=== PATIENT | male | born 1950 | race Caucasian/White ===

== ENCOUNTER 2017-10-19 11:55 | Emergency (ER) | END 2017-10-19 15:16 | disposition home or self-care (01) ==

== ENCOUNTER 2017-11-01 17:19 | Emergency (ER) | END 2017-11-01 19:00 | disposition home or self-care (01) ==

== ENCOUNTER 2017-11-15 12:52 | Emergency (ER) | END 2017-11-15 15:29 | disposition home or self-care (01) ==

== ENCOUNTER 2018-07-04 16:23 | Emergency (ER) | payer MEDICARE, OTHER ==
[~2018-07-04] VITALS: Ht 180.3 cm; Wt 79.0 kg
[~2018-07-04 16:23] MED LIST: ACET500C5 PO; IBUP-1542 PO; NAPR-688 PO
[2018-07-04 16:26] VITALS: BP 149/76; PULSE 65; RESP 20; Ht 180.3 cm; Wt 79.0 kg
--- NOTE | 2018-07-04 16:56 | ERD ---
ER Documentation Chief Complaint Chief Complaint c/o right hip pain, had surgery on area in the past HPI 67-year-old male with history of chronic right hip pain presents for 1 pill of Percocet. Patient states that he has has chronic pain and is trying to get into pain management. States that 10 mg of Percocet helps with the pain, and states that the last time he used Percocet was 2 weeks ago. Denies being on any medications currently for pain. Patient states that he does not want a prescription rather just 1 pill right now for help with the pain. Describes the pain is intermittent and currently 10 out of 10. Denies fevers, chills, numbness, tingling, weakness. ROS All systems reviewed and are negative except as per history of present illness. Medications Home Meds Active Scripts Ibuprofen* (Motrin*) 600 Mg Tab, 600 MG PO Q8, #30 TAB Prov:KIMI CEBALLOS MD 11/15/17 Naproxen* (Naproxen*) 500 Mg Tablet, 500 MG PO BID PRN for PAIN, #14 TAB Prov:MARY SOTELO DO 11/01/17 Acetaminophen* (Tylophen*) 500 Mg Capsule, 1 CAP PO Q6H PRN for PAIN AND OR ELEVATED TEMP, #20 CAP Prov:ANGELINA STARR PA-C 10/19/17 Allergies Allergies: Coded Allergies: No Known Allergy (Unverified , 11/15/17) PMhx/Soc History of Surgery: Yes (right hip) Anesthesia Reaction: No Hx Neurological Disorder: No Hx Respiratory Disorders: No Hx Cardiac Disorders: No Hx Psychiatric Problems: No Hx Miscellaneous Medical Probl: Yes Hx Alcohol Use: No Hx Substance Use: No Hx Tobacco Use: Yes (cig a pack day) Smoking Status: Former smoker FmHx Family History: No diabetes, No coronary disease, No other Physical Exam Vitals Vital Signs Date Temp Pulse Resp B/P (MAP) Pulse Ox O2 O2 Flow FiO2 Time Delivery Rate 07/04/18 98.6 65 20 149/76 98 16:26 (100) Physical Exam Const: No acute distress Head: Atraumatic Eyes: Normal Conjunctiva ENT: Normal External Ears, Nose and Mouth. Neck: Full range of motion. No meningismus. Resp: Clear to auscultation bilaterally Cardio: Regular rate and rhythm, no murmurs Abd: Soft, non tender, non distended. Normal bowel sounds Skin: No petechiae or rashes Back: No midline or flank tenderness Ext: No cyanosis, or edema Neur: Awake and alert Psych: Normal Mood and Affect Results 24 hrs Current Medications Medications Dose Sig/Edwardo Start Time Status Last (Trade) Ordered Route PRN Stop Time Admin Dose Reason Admin Oxycodone/ 1 tab ONCE ONCE 07/04/18 Acetaminophen PO 17:00 07/04/18 (Endocet 17:01 ()) Procedures/MDM I ran a [place] and saw the patient has been going to multiple providers for pain medications. While I believe that the patient does have hip pain, I told him that he needs to get into pain management as this would be the most effective way to manage his pain. Patient was given 1 Percocet in the ER. I have low suspicion for neurovascular compromise, compartment syndrome, fracture, osteomyelitis, septic joint, or other emergent condition. Patient discharged with strict ER precautions. Patient advised to follow up with PMD. All questions answered at discharge. Departure Diagnosis: Primary Impression: Hip pain Laterality: right Qualified Codes: M25.551 - Pain in right hip Condition: Stable Patient Instructions: Pain Management Referrals: [facility] YOU HAVE RECEIVED A MEDICAL SCREENING EXAM AND THE RESULTS INDICATE THAT YOU DO NOT HAVE A CONDITION THAT REQUIRES URGENT TREATMENT IN THE EMERGENCY DEPARTMENT. FURTHER EVALUATION AND TREATMENT OF YOUR CONDITION CAN WAIT UNTIL YOU ARE SEEN IN YOUR DOCTORS OFFICE WITHIN THE NEXT 1-2 DAYS. IT IS YOUR RESPONSIBILITY TO MAKE AN APPOINTMENT FOR FOLOW-UP CARE. IF YOU HAVE A PRIMARY DOCTOR --you should call your primary doctor and schedule an appointment IF YOU DO NOT HAVE A PRIMARY DOCTOR YOU CAN CALL OUR PHYSICIAN REFERRAL HOTLINE AT IF YOU CAN NOT AFFORD TO SEE A PHYSICIAN YOU CAN CHOSE FROM THE FOLLOWING [facility] [address] [facility] [address] [facility] [address] [facility] [address] [facility] [address] [facility]. [address] Additional Instructions: FOLLOW UP WITH YOUR PRIMARY CARE PHYSICIAN TOMORROW.Return to this facility if you are not improving as expected. VINOD PINEDA Jul 04, 2018 16:56
[2018-07-04] MEDS ORDERED: OXYCODONE/ACETAMINOPHEN (10/325) TAB PO ONE (17:00)
== END 2018-07-04 17:39 | disposition home or self-care (01) ==
LOC: FTE 16:23
DX: M25.551 Pain in right hip (principal); Z87.891 Personal history of nicotine dependence
CPT/HCPCS: 99283

== ENCOUNTER 2018-07-06 14:34 | Emergency (ER) | payer MEDICARE ==
[~2018-07-06] VITALS: Ht 177.8 cm; Wt 79.8 kg
[2018-07-06 15:06] VITALS: BP 116/62; PULSE 62; RESP 18; Ht 177.8 cm; Wt 79.8 kg
[2018-07-06] MEDS ORDERED: OXYCODONE/ACETAMINOPHEN (10/325) TAB PO ONE (17:00)
--- NOTE | 2018-07-06 17:51 | ERD ---
ER Documentation Chief Complaint Chief Complaint c/o right hip pain HPI This is a 67-year-old male with history of chronic right hip pain presents to the ED complaining exacerbation of his pain. Patient reports a throbbing 6 out of 10 pain to his right hip. He states he initially injured and broke his right hip 3 months ago and again reinjured it 2 weeks ago after falling in [place]. He states he has an appointment to see his orthopedic surgeon tomorrow and is requesting only 1 pill of Percocet to help with the pain. He uses a cane for ambulation. He denies any numbness, tingling, focal weakness. He states he has an appointment at the [facility] for pain management on July 21, 2018. Patient was seen here 2 days ago for same. ROS All systems reviewed and are negative except as per history of present illness. Medications Home Meds Active Scripts Ibuprofen* (Motrin*) 600 Mg Tab, 600 MG PO Q8, #30 TAB Prov:KIMI CEBALLOS MD 11/15/17 Naproxen* (Naproxen*) 500 Mg Tablet, 500 MG PO BID PRN for PAIN, #14 TAB Prov:MARY SOTELO DO 11/01/17 Acetaminophen* (Tylophen*) 500 Mg Capsule, 1 CAP PO Q6H PRN for PAIN AND OR ELEVATED TEMP, #20 CAP Prov:ANGELINA STARR PA-C 10/19/17 Allergies Allergies: Coded Allergies: Penicillins (Verified Allergy, Mild, 07/06/18) PMhx/Soc History of Surgery: Yes (right hip) Anesthesia Reaction: No Hx Neurological Disorder: No Hx Respiratory Disorders: No Hx Cardiac Disorders: No Hx Psychiatric Problems: No Hx Miscellaneous Medical Probl: Yes Hx Alcohol Use: No Hx Substance Use: No Hx Tobacco Use: Yes (cig a pack day) Smoking Status: Current every day smoker Physical Exam Vitals Vital Signs Date Temp Pulse Resp B/P (MAP) Pulse Ox O2 O2 Flow FiO2 Time Delivery Rate 07/06/18 97.0 62 18 116/62 98 15:06 (80) Physical Exam Const: No acute distress. + Limping, ambulating with a cane Head: Atraumatic Eyes: Normal Conjunctiva ENT: Normal External Ears, Nose and Mouth. Neck: Full range of motion. No meningismus. Skin: No petechiae or rashes Back: No midline or flank tenderness Ext: No cyanosis, or edema Neur: Awake and alert Psych: Normal Mood and Affect Results 24 hrs Current Medications Medications Dose Sig/Edwardo Start Time Status Last (Trade) Ordered Route PRN Stop Time Admin Dose Reason Admin Oxycodone/ 1 tab ONCE ONCE 07/06/18 DC 07/06/18 Acetaminophen PO 17:00 07/06/18 17:12 (Endocet 17:01 ()) Procedures/MDM ED COURSE: The patient was given Percocet The medication was well tolerated and the patient had market improvement in symptoms. The patient remained stable throughout ED course. MEDICAL DECISION MAKING: This is a 67-year-old male with history of chronic right hip pain status post fracture several months ago presents to the ED for exacerbation of his chronic pain. Patient has no acute findings on physical exam. He is able to remain a mbulatory with a cane. He is requesting one Percocet here. Records reviewed show that he was seen 2 days ago for same. He was given 1 Percocet and discharged home. I reviewed his information on the [facility] which shows that patient has been to multiple ED visits for narcotic pain meds. He was last given a short rx 3 weeks ago. I have decided to give him only 1 Percocet here. I told him that he must follow-up with [facility] whom he has an appointment with on July 21, 2018. He was not given a prescription for any narcotic pain medications here. PRESCRIPTIONS: None SPECIALIST FOLLOW UP RECOMMENDED: regional facilities specialist. Patient has been advised to follow up with primary care in 1-2 days. Smoking Cessation Therapy: Pt. was lectured for greater than 3 minutes on the health risks of continued smoking and the benefits of cessation. Departure Diagnosis: Primary Impression: Hip pain Laterality: right Qualified Codes: M25.551 - Pain in right hip Condition: Stable Patient Instructions: Hip Precautions Referrals: DOCTOR,NOT ON STAFF (PCP) Additional Instructions: Please follow-up with the [facility] as scheduled. you can take [id number] Motrin or Tylenol for any pain. Return here for any new or worsening symptoms. RALPH CULLEN PA-C Jul 06, 2018 17:51
== END 2018-07-06 17:57 | disposition home or self-care (01) ==
LOC: FTE 14:34
DX: M25.551 Pain in right hip (principal); F17.210 Nicotine dependence, cigarettes, uncomplicated
CPT/HCPCS: 99283

== ENCOUNTER 2018-07-09 11:52 | Emergency (ER) | payer MEDICARE ==
[~2018-07-09] VITALS: Ht 180.3 cm; Wt 80.0 kg
[2018-07-09 12:01] VITALS: BP 121/60; PULSE 64; RESP 18; Ht 180.3 cm; Wt 80.0 kg
--- NOTE | 2018-07-09 13:10 | ERD ---
ER Documentation Chief Complaint Chief Complaint pt bib self needs "one pill of pain meds " awaiting script Right hip pain HPI 67-year-old male presents with a history of right hip fracture. He is awaiting his prescription via mail. He is asking for one pain pill today. Denies any recent injuries, fevers, chest pain, shortness of breath, additional symptoms. She requesting one Percocet to hold him over until his prescription arrives ho pefully within the next 1-2 days. He recently broke his hip in the [facility] and his family is sending his medication from there. ROS All systems reviewed and are negative except as per history of present illness. Medications Home Meds Active Scripts Ibuprofen* (Motrin*) 600 Mg Tab, 600 MG PO Q8, #30 TAB Prov:KIMI CEBALLOS MD 11/15/17 Naproxen* (Naproxen*) 500 Mg Tablet, 500 MG PO BID PRN for PAIN, #14 TAB Prov:MARY SOTELO DO 11/01/17 Acetaminophen* (Tylophen*) 500 Mg Capsule, 1 CAP PO Q6H PRN for PAIN AND OR ELEVATED TEMP, #20 CAP Prov:ANGELIAN STARR PA-C 10/19/17 Allergies Allergies: Coded Allergies: Penicillins (Verified Allergy, Mild, 07/06/18) PMhx/Soc History of Surgery: Yes (right hip) Anesthesia Reaction: No Hx Neurological Disorder: No Hx Respiratory Disorders: No Hx Cardiac Disorders: No Hx Psychiatric Problems: No Hx Miscellaneous Medical Probl: Yes Hx Alcohol Use: No Hx Substance Use: No Hx Tobacco Use: Yes (cig a pack day) FmHx Family History: No diabetes, No coronary disease, No other Physical Exam Vitals Vital Signs Date Temp Pulse Resp B/P (MAP) Pulse Ox O2 O2 Flow FiO2 Time Delivery Rate 07/09/18 98.3 64 18 121/60 99 12:01 (80) Physical Exam Const: No acute distress Head: Atraumatic Eyes: Normal Conjunctiva ENT: Normal External Ears, Nose and Mouth. Neck: Full range of motion. No meningismus. Resp: Clear to auscultation bilaterally Cardio: Regular rate and rhythm, no murmurs Abd: Soft, non tender, non distended. Normal bowel sounds Skin: No petechiae or rashes Back: No midline or flank tenderness Ext: No cyanosis, or edema. Ambulatory with a cane. No deficits. Neur: Awake and alert Psych: Normal Mood and Affect Procedures/MDM Patient presents with postoperative pain for right hip fracture. He was given Percocet 10 mg by mouth by request. He is not requesting a prescription. Patient apparently has had management pending with receipt of his medications shortly. He denies recent trauma and is otherwise well-appearing and ambulatory. The patient was stable with no new complaints during the ER course. Clinically, there is no current evidence to suggest meningitis, sepsis, acute abdomen, pneumonia, stroke, acute coronary syndrome, pulmonary embolism, aortic dissection or any other emergent condition appearing to require further evaluation or hospitalization. Patient counseled regarding my diagnostic impression and care plan. Prior to discharge all questions answered. Pt agrees with treatment plan and understands strict return precautions. Pt is instructed to follow up with primary care provider within 24-48 hours. Precautionary instructions provided including instructions to return to the ER if not improving or for any worsening or changing symptoms or concerns. Departure Diagnosis: Primary Impression: Encounter for medication refill Additional Impression: Hip pain Laterality: right Qualified Codes: M25.551 - Pain in right hip Condition: Stable RONNIE RIVAS MD Jul 09, 2018 13:10
[2018-07-09] MEDS ORDERED: OXYCODONE/ACETAMINOPHEN (10/325) TAB PO ONE (13:30)
== END 2018-07-09 14:25 | disposition home or self-care (01) ==
LOC: FTE 11:52
DX: M25.551 Pain in right hip (principal); Z76.0 Encounter for issue of repeat prescription; Z87.891 Personal history of nicotine dependence
CPT/HCPCS: 99283

== ENCOUNTER 2018-07-12 13:33 | Emergency (ER) | payer MEDICARE ==
[~2018-07-12] VITALS: Wt 72.0 kg
[2018-07-12 13:37] VITALS: BP 134/64; PULSE 62; RESP 20
--- NOTE | 2018-07-12 13:44 | EN ---
Date/Time of Note Date/Time of Note DATE: 07/12/18 TIME: 13:43 ER Progress Note Patient seen in E.. MSE performed. Patient requesting 1 pain pill dispensed until his prescription arrives within the next 1- 2 day in mail. RONNIE RIVAS MD Jul 12, 2018 13:44
[2018-07-12] MEDS ORDERED: OXYCODONE/ACETAMINOPHEN (5/325) TAB PO ONE (15:00)
--- NOTE | 2018-07-12 15:53 | ERD ---
ER Documentation Chief Complaint Chief Complaint NEEDS PAIN MEDS REFILLED . PT IS FROM [place] TOWN , R HIP PAIN HPI 67-year-old male presenting with hip pain. Patient has a long extensive surgical history of hip replacements. He states he is out of town and is waiting for his pain management doctor to send medications in the mail. Patient states he is requesting a pain pill but does not need a prescription for pain. Patient denies any recent falls. Denies any numbness or tingling. Denies other medical problems. NKDA. Surgical history hip replaced. Social history denies ROS All systems reviewed and are negative except as per history of present illness. Medications Home Meds Active Scripts Ibuprofen* (Motrin*) 600 Mg Tab, 600 MG PO Q8, #30 TAB Prov:KIMI CEBALLOS MD 11/15/17 Naproxen* (Naproxen*) 500 Mg Tablet, 500 MG PO BID PRN for PAIN, #14 TAB Prov:MARY SOTELO DO 11/01/17 Acetaminophen* (Tylophen*) 500 Mg Capsule, 1 CAP PO Q6H PRN for PAIN AND OR ELEV ATED TEMP, #20 CAP Prov:ANGELINA STARR PA-C 10/19/17 Allergies Allergies: Coded Allergies: Penicillins (Verified Allergy, Mild, 07/06/18) PMhx/Soc History of Surgery: Yes (right hip) Anesthesia Reaction: No Hx Neurological Disorder: No Hx Respiratory Disorders: No Hx Cardiac Disorders: No Hx Psychiatric Problems: No Hx Miscellaneous Medical Probl: Yes Hx Alcohol Use: No Hx Substance Use: No Hx Tobacco Use: Yes (cig a pack day) Smoking Status: Never smoker FmHx Family History: No diabetes, No coronary disease, No other Physical Exam Vitals Vital Signs Date Temp Pulse Resp B/P (MAP) Pulse Ox O2 O2 Flow FiO2 Time Delivery Rate 07/12/18 98.7 62 20 134/64 98 13:37 (87) Physical Exam GENERAL: The patient is well-appearing, well-nourished, in no acute distress CHEST: Clear to auscultation bilaterally. There are no rales, wheezes or rhonchi. HEART: Regular rate and rhythm. No murmurs, clicks, rubs or gallops. EXTREMITIES: Limited range of motion of the hip secondary to pain. Vascular intact. No erythema or induration. NEUROLOGIC: Alert and oriented. Cranial nerves II through XII intact. Motor strength in all 4 extremities with 5 out of 5 strength. Sensation grossly intact. Normal speech and gait. Babinski negative. DTR 2+ throughout. SKIN: There is no apparent rash or petechiae. The skin is warm and dry. Results 24 hrs Current Medications Medications Dose Sig/Edwardo Start Time Status Last (Trade) Ordered Route PRN Stop Time Admin Dose Reason Admin Oxycodone/ 1 tab ONCE ONCE 07/12/18 DC 07/12/18 Acetaminophen PO 15:00 14:45 (Percocet 07/12/18 15:01 (5/ 325)) Procedures/MDM ER course: Percocet 5/325 given ED. MDM: 67-year-old male presenting with hip pain. Patient is stating he has pain medication and transit and is requesting a pill today. I have reviewed patient's cures report and is extensive. I told patient I will not be discharged with a prescription. I have concern for drug-seeking behavior in thi s patient. Patient is given pain pill in the ER and then discharged. Patient is not driving. All questions answered at discharge Departure Diagnosis: Primary Impression: Hip pain Additional Impression: Encounter for medication refill Condition: Stable Patient Instructions: Hip Precautions Referrals: [facility] YOU HAVE RECEIVED A MEDICAL SCREENING EXAM AND THE RESULTS INDICATE THAT YOU DO NOT HAVE A CONDITION THAT REQUIRES URGENT TREATMENT IN THE EMERGENCY DEPARTMENT. FURTHER EVALUATION AND TREATMENT OF YOUR CONDITION CAN WAIT UNTIL YOU ARE SEEN IN YOUR DOCTORS OFFICE WITHIN THE NEXT 1-2 DAYS. IT IS YOUR RESPONSIBILITY TO MAKE AN APPOINTMENT FOR FOLOW-UP CARE. IF YOU HAVE A PRIMARY DOCTOR --you should call your primary doctor and schedule an appointment IF YOU DO NOT HAVE A PRIMARY DOCTOR YOU CAN CALL OUR PHYSICIAN REFERRAL HOTLINE AT IF YOU CAN NOT AFFORD TO SEE A PHYSICIAN YOU CAN CHOSE FROM THE FOLLOWING [facility] [address] [facility] [address] [facility] [address] [facility] [address] [facility] [address] [facility] [facility] [address] Additional Instructions: FOLLOW UP WITH YOUR PRIMARY CARE PHYSICIAN TOMORROW.Return to this facility if you are not improving as expected. DARIEN GARCIA PA-C Jul 12, 2018 15:53
== END 2018-07-12 15:25 | disposition left against medical advice (07) ==
LOC: FTE 13:33
DX: M25.551 Pain in right hip (principal); F17.210 Nicotine dependence, cigarettes, uncomplicated; Z76.0 Encounter for issue of repeat prescription; Z96.649 Presence of unspecified artificial hip joint
CPT/HCPCS: 99283

== ENCOUNTER 2018-07-15 11:16 | Emergency (ER) | payer MEDICARE ==
[~2018-07-15] VITALS: Ht 182.9 cm; Wt 80.0 kg
[2018-07-15 12:01] VITALS: BP 141/61; PULSE 62; RESP 18; Ht 182.9 cm; Wt 80.0 kg
--- NOTE | 2018-07-15 13:20 | ERD ---
ER Documentation Chief Complaint Chief Complaint C/O RIGHT HIP PAIN; SURGERY 3 MONTHS AGO; RUN OUT OF PAIN MEDS HPI Patient is a 67-year-old male who presents with right-sided hip pain. He says that he had surgery 3 months ago and is run out of his pain medications. He is well-known to myself and to our staff and uses 3 different names and has complained for years of having right-sided hip pain. His story has been similar in the past as well. Upon review of the emergency department information exchange system the patient has more than 50 visits to more than 10 different emergency departments over the past 12 months. He requests narcotic pain medicines. ROS All systems reviewed and are negative except as per history of present illness. Medications Home Meds Active Scripts Ibuprofen* (Motrin*) 600 Mg Tab, 600 MG PO Q8, #30 TAB Prov:KIMI CEBALLOS MD 11/15/17 Naproxen* (Naproxen*) 500 Mg Tablet, 500 MG PO BID PRN for PAIN, #14 TAB Prov:MARY SOTELO DO 11/01/17 Acetaminophen* (Tylophen*) 500 Mg Capsule, 1 CAP PO Q6H PRN for PAIN AND OR ELEVATED TEMP, #20 CAP Prov:ANGELINA STARR PA-C 10/19/17 Allergies Allergies: Coded Allergies: Penicillins (Verified Allergy, Mild, 07/06/18) PMhx/Soc History of Surgery: Yes (right hip) Anesthesia Reaction: No Hx Neurological Disorder: No Hx Respiratory Disorders: No Hx Cardiac Disorders: No Hx Psychiatric Problems: No Hx Miscellaneous Medical Probl: Yes Hx Alcohol Use: No Hx Substance Use: No Hx Tobacco Use: Yes (cig a pack day) FmHx Family History: No diabetes Physical Exam Vitals Vital Signs Date Temp Pulse Resp B/P (MAP) Pulse Ox O2 O2 Flow FiO2 Time Delivery Rate 07/15/18 97.3 62 18 141/61 100 12:01 (87) Physical Exam Const: No acute distress Neur: Awake and alert, patient visualized ambulating in the emergency department Procedures/MDM Patient is a 67-year-old male who presents with chronic right hip pain. I believe he is exhibiting drug-seeking behavior. He was witnessed ambulating in the emergency department. I would not give him narcotic medicines or prescriptions for narcotics in the future. The patient eloped prior to receiving information on discharge paperwork. Departure Diagnosis: Primary Impression: Chronic pain Chronic pain type: chronic pain syndrome Qualified Codes: G89.4 - Chronic pain syndrome Additional Impression: Hip pain Laterality: right Qualified Codes: M25.551 - Pain in right hip Condition: Fair Patient Instructions: Chronic Pain Referrals: YUNIEL MESA MD Additional Instructions: SPECIALIST: YOU HAVE A MEDICAL CONDITION WHICH REQUIRES YOU TO SEE A SPECIALIST WITHIN THE NEXT 1-2 DAYS. PLEASE FOLLOW UP WITH YOUR PRIMARY PHYSICIAN FOR REFFERAL.IF YOU DO NOT HAVE A PRIMARY CARE PHYSICIAN AND/OR YOU CAN NOT AFFORD TO SEE A PHYSICIAN THE FOLLOWING RESOURCES HAVE BEEN SUPPLIED TO YOU. IT IS YOUR RESPONSIBILITY TO BE SEEN BY THE SPECIALIST STEPHAN YAO MD Jul 15, 2018 13:19
== END 2018-07-15 14:23 | disposition left against medical advice (07) ==
LOC: E/R 11:16
DX: M25.551 Pain in right hip (principal); G89.4 Chronic pain syndrome; Z87.891 Personal history of nicotine dependence
CPT/HCPCS: 99282

== ENCOUNTER 2018-08-22 17:56 | Emergency (ER) | payer MEDICARE ==
[~2018-08-22] VITALS: Ht 180.3 cm; Wt 78.7 kg
[2018-08-22 17:59] VITALS: BP 136/70; PULSE 66; RESP 18; Ht 180.3 cm; Wt 78.7 kg
[2018-08-22] MEDS ORDERED: NALO4SPR NS (18:05)
--- NOTE | 2018-08-22 18:09 | ERD ---
ER Documentation Chief Complaint Chief Complaint RT HIP PAIN S/P AFLL WEEK AGO HPI 67-year-old male who presents to the emergency room asking for a narcotic pill for his chronic hip pain. He told someone at triage that he fell but he denies this to me. The patient was here under a different name earlier this morning for similar presentation. The patient's [facility] care plan report shows 55 visits in the last 12 months to greater than 10 facilities under this name. Care plans report that the patient uses at least 3 different names for these similar presentations. He is to different name this morning. Patient states that he has chronic pain will see a doctor this week he just needs a pill for pain here in the emergency room. He cannot characterize the pain duration or character of the right hip pain. ROS All systems reviewed and are negative except as per history of present illness. Medications Home Meds Active Scripts Naloxone HCl nasal spray (Narcan 4 mg/0.1 mL nasal) 4 Mg [place], 4 MG NS .Q2-3MIN for OPIOID OVERDOSE, #2 SPRAY 0 Refills [place]ony 0.1 mL into one nostril. Repeat with second device into other nostril after 2-3 minutes if no or minimal response Prov:DEEDEE ISBELL MD 08/22/18 Ibuprofen* (Motrin*) 600 Mg Tab, 600 MG PO Q8, #30 TAB Prov:KIMI CEBALLOS MD 11/15/17 Naproxen* (Naproxen*) 500 Mg Tablet, 500 MG PO BID PRN for PAIN, #14 TAB Prov:MARY SOTELO DO 11/01/17 Acetaminophen* (Tylophen*) 500 Mg Capsule, 1 CAP PO Q6H PRN for PAIN AND OR ELEVATED TEMP, #20 CAP Prov:ANGELINA STARR PA-C 10/19/17 Allergies Allergies: Coded Allergies: Penicillins (Verified Allergy, Mild, 07/06/18) PMhx/Soc History of Surgery: Yes (right hip) Anesthesia Reaction: No Hx Neurological Disorder: No Hx Respiratory Disorders: No Hx Cardiac Disorders: No Hx Psychiatric Problems: No Hx Miscellaneous Medical Probl: Yes Hx Alcohol Use: No Hx Substance Use: No Hx Tobacco Use: Yes (cig a pack day) FmHx Family History: No diabetes Physical Exam Vitals Vital Signs Date Temp Pulse Resp B/P (MAP) Pulse Ox O2 O2 Flow FiO2 Time Delivery Rate 08/22/18 97.4 66 18 136/70 99 17:59 (92) Physical Exam General: Well developed, well nourished, no acute distress Head: Normocephalic, atraumatic. Eyes: EOM intact ENT: Moist mucous membranes Neck: Full ROM Respiratory: No respiratory distress Cardiovascular: Well perfused distally Abdominal: Nondistended : Deferred MSK: No edema, no unilateral swelling, 5/5 strength Neurologic: Alert and oriented, moving all extremities, normal speech, steady gait with a cane at baseline. Skin: No rash Psych: Normal mood Procedures/MDM A combination of electronic medical record review, [facility] database review and patient behavior in the emergency room are concerning for drug-seeking and/or narcotic dependence behavior. In my opinion further use of IV or IM narcotics in this patient is not warranted unless clinical scenario changes. In addition, we should use caution prescribing chronic narcotic and/or benzodiazepine medications from the emergency room. A single provider should be dispensing this type of medication. The patient was informed. The patient's care plan report is very concerning for chronic abuse of the emergency room system as well as drug-seeking behavior. His presentation today is additionally consistent with drug-seeking behavior. I do not feel that the patient requires narcotic medication and have offered Tylenol Motrin. Patient states "that is not to do anything for me". Patient got up and walked to the bathroom and out of the emergency room. I would avoid the use of any narcotics in this patient in the future Related to his chronic pain the patient does not have an identifiable emergent medical condition that warrants inpatient hospitalization at this time. The patient is deemed safe for discharge with outpatient follow-up. We discussed follow up with the patient's primary care doctor within 24 to 48 hours as needed. We also discussed return to the emergency room for worsening symptoms or worsening condition. Outpatient referral: Pain management Discharge Medications: None required . Departure Diagnosis: Primary Impression: Drug-seeking behavior Additional Impression: Chronic hip pain Laterality: right Qualified Codes: M25.551 - Pain in right hip; G89.29 - Other chronic pain Condition: Stable Patient Instructions: Chronic Pain Referrals: YUNIEL MESA MD [facility] YOU HAVE RECEIVED A MEDICAL SCREENING EXAM AND THE RESULTS INDICATE THAT YOU DO NOT HAVE A CONDITION THAT REQUIRES URGENT TREATMENT IN THE EMERGENCY DEPARTMENT. FURTHER EVALUATION AND TREATMENT OF YOUR CONDITION CAN WAIT UNTIL YOU ARE SEEN IN YOUR DOCTORS OFFICE WITHIN THE NEXT 1-2 DAYS. IT IS YOUR RESPONSIBILITY TO MAKE AN APPOINTMENT FOR FOLOW-UP CARE. IF YOU HAVE A PRIMARY DOCTOR --you should call your primary doctor and schedule an appointment IF YOU DO NOT HAVE A PRIMARY DOCTOR YOU CAN CALL OUR PHYSICIAN REFERRAL HOTLINE AT IF YOU CAN NOT AFFORD TO SEE A PHYSICIAN YOU CAN CHOSE FROM THE FOLLOWING [facility] [address] [facility] [address] [facility] [facility] [address] [facility] [address] [facility] [address] [facility] [facility] [address] [facility] [facility] YOU HAVE RECEIVED A MEDICAL SCREENING EXAM AND THE RESULTS INDICATE THAT YOU DO NOT HAVE A CONDITION THAT REQUIRES URGENT TREATMENT IN THE EMERGENCY DEPARTMENT. FURTHER EVALUATION AND TREATMENT OF YOUR CONDITION CAN WAIT UNTIL YOU ARE SEEN IN YOUR DOCTORS OFFICE WITHIN THE NEXT 1-2 DAYS. IT IS YOUR RESPONSIBILITY TO MAKE AN APPOINTMENT FOR FOLOW-UP CARE. IF YOU HAVE A PRIMARY DOCTOR --you should call your primary doctor and schedule and appointment IF YOU DO NOT HAVE A PRIMARY DOCTOR YOU CAN CALL OUR PHYSICIAN REFERRAL HOTLINE AT . IF YOU CAN NOT AFFORD TO SEE A PHYSICIAN YOU CAN CHOSE FROM THE FOLLOWING [facility] INSTITUTIONS: [facility] [address] [place] [address] [facility] [address] [place] [address] [facility] [address] [place] [address] Additional Instructions: Call your primary care doctor TOMORROW for an appointment during the next 1 WEEK.Tell the personal secretary that you were referred from this facility.See the doctor sooner or return here if your condition worsens before your appointment time. DEEDEE ISBELL MD August 22, 2018 18:09
== END 2018-08-22 18:10 | disposition home or self-care (01) ==
LOC: E/R 17:56
DX: M25.551 Pain in right hip (principal); G89.29 Other chronic pain; F17.210 Nicotine dependence, cigarettes, uncomplicated; Z76.5 Malingerer [conscious simulation]
CPT/HCPCS: 99283

== ENCOUNTER 2018-10-07 11:39 | Emergency (ER) | payer MEDICARE ==
[~2018-10-07] VITALS: Ht 177.8 cm; Wt 78.2 kg
[~2018-10-07 11:39] MED LIST changes: +NALO4SPR NS
[2018-10-07 11:57] VITALS: BP 119/61; PULSE 64; RESP 18; Ht 177.8 cm; Wt 78.2 kg
[2018-10-07] MEDS ORDERED: IBUP800T48 PO (12:41)
--- NOTE | 2018-10-07 13:13 | ERD ---
ER Documentation Chief Complaint Chief Complaint CHRONIC RIGHT HIP PAIN, NO PAIN MED AT HOME. ABLE TO AMBULATE. HPI 67-year-old male presenting with pain to his left hip. Patient states that he has run out of pain medication he is unable to see his primary doctor. He states that he has prior history on the hip and takes Percocet 12/30/2024. Patient is not requesting a prescription but only request 1 pill for pain control. Denies medical problems. Allergy to penicillin. Surgical history hip surgery. Social history smokes half a pack of cigarettes a day. ROS All systems reviewed and are negative except as per history of present illness. Medications Home Meds Active Scripts Ibuprofen* (Motrin*) 800 Mg Tab, 800 MG PO Q6, #30 TAB Prov:DARIEN GARCIA PA-C 10/07/18 Naloxone HCl nasal spray (Narcan 4 mg/0.1 mL nasal) 4 Mg [place], 4 MG NS .Q2-3MIN for OPIOID OVERDOSE, #2 SPRAY 0 Refills [place] 0.1 mL into one nostril. Repeat with second device into other nostril after 2-3 minutes if no or minimal response Prov:DEEDEE ISBELL MD 08/22/18 Ibuprofen* (Motrin*) 600 Mg Tab, 600 MG PO Q8, #30 TAB Prov:KIMI CEBALLOS MD 11/15/17 Naproxen* (Naproxen*) 500 Mg Tablet, 500 MG PO BID PRN for PAIN, #14 TAB Prov:MARY SOTELO DO 11/01/17 Acetaminophen* (Tylophen*) 500 Mg Capsule, 1 CAP PO Q6H PRN for PAIN AND OR ELEVATED TEMP, #20 CAP Prov:ANGELINA STARR PA-C 10/19/17 Allergies Allergies: Coded Allergies: Penicillins (Verified Allergy, Mild, 07/06/18) PMhx/Soc History of Surgery: Yes (right hip) Anesthesia Reaction: No Hx Neurological Disorder: No Hx Respiratory Disorders: No Hx Cardiac Disorders: No Hx Psychiatric Problems: No Hx Miscellaneous Medical Probl: Yes (Chronic hip pain) Hx Alcohol Use: No Hx Substance Use: No Hx Tobacco Use: Yes (cig a pack day) Smoking Status: Current every day smoker FmHx Family History: No diabetes, No coronary disease, No other Physical Exam Vitals Vital Signs Date Temp Pulse Resp B/P (MAP) Pulse Ox O2 O2 Flow FiO2 Time Delivery Rate 10/07/18 97.3 64 18 119/61 94 11:57 (80) Physical Exam GENERAL: The patient is well-appearing, well-nourished, in no acute distress CHEST: Clear to auscultation bilaterally. There are no rales, wheezes or rhonchi. HEART: Regular rate and rhythm. No murmurs, clicks, rubs or gallops. No S3 or S4. EXTREMITIES: Equal pulses bilaterally. There is no peripheral clubbing, cyanosis or edema. No focal swelling or erythema. Full range of motion. Grossly neurovascularly intact. NEUROLOGIC: Alert and oriented. Cranial nerves II through XII intact. Motor strength in all 4 extremities with 5 out of 5 strength. Sensation grossly intact. Normal speech and gait. SKIN: There is no apparent rash or petechiae. The skin is warm and dry. Procedures/MDM ER course: No pain medication was given. MDM: 67-year-old male presenting with hip pain requesting pain medication. I know this patient well as he is seen multiple times in the ER with history of drug-seeking activity. Patient frequently checks in with different names and has the same story. I discussed this with the patient and told him I would be unable to give him narcotic medications due to the risk and concern of drug- seeking activity. Patient states that he does not want anti-inflammatories. I also discussed this case with Dr. Macedo prior to discharging patient. Patient is discharged with strict ER precautions and anti-inflammatory medications. No narcotics will be given. All questions answered at discharge. Departure Condition: Stable Patient Instructions: Pain Management Referrals: JEVON GRAFF MD [facility] YOU HAVE RECEIVED A MEDICAL SCREENING EXAM AND THE RESULTS INDICATE THAT YOU DO NOT HAVE A CONDITION THAT REQUIRES URGENT TREATMENT IN THE EMERGENCY DEPARTMENT. FURTHER EVALUATION AND TREATMENT OF YOUR CONDITION CAN WAIT UNTIL YOU ARE SEEN IN YOUR DOCTORS OFFICE WITHIN THE NEXT 1-2 DAYS. IT IS YOUR RESPONSIBILITY TO MAKE AN APPOINTMENT FOR FOLOW-UP CARE. IF YOU HAVE A PRIMARY DOCTOR --you should call your primary doctor and schedule an appointment IF YOU DO NOT HAVE A PRIMARY DOCTOR YOU CAN CALL OUR PHYSICIAN REFERRAL HOTLINE AT IF YOU CAN NOT AFFORD TO SEE A PHYSICIAN YOU CAN CHOSE FROM THE FOLLOWING [facility] [address] [facility] [address] [facility] [facility] [address] [facility] [address] [facility]. [facility] [phone] [facility]. [facility] [address] Additional Instructions: FOLLOW UP WITH YOUR PRIMARY CARE PHYSICIAN TOMORROW.Return to this facility if you are not improving as expected. Comments patient evaluated with PA, agree with assessment and plan. DARIEN Tran PA-C Oct 07, 2018 13:13 AI PARKS DO Oct 10, 2018 19:57
== END 2018-10-07 13:49 | disposition left against medical advice (07) ==
LOC: FTE 11:39
DX: M25.551 Pain in right hip (principal); F17.210 Nicotine dependence, cigarettes, uncomplicated
CPT/HCPCS: 99282